=== PATIENT | female | born 1930 | race Caucasian/White ===

== ENCOUNTER → 2017-03-24 | Outpatient (CLI) | payer MEDICARE, OTHER ==
[2015-11-25 23:57] VITALS: BP 142/65
[~2017-03-24] MED LIST: ANAS1TAB3 PO; ASPI-482 PO; CELE200C PO; CONTRAST GIVEN MC PRN; CYAN10005 PO; DOCU-27 PO; HYDR-971 PO; IOHEXOL 240 MG/ML 50ML VIAL. PO ONE; LISI2.5T PO; METF-620 PO; METO25TA4 PO; MULT-208 PO; Oxycodone Hcl/Acetaminophen PO; SIMV20TA3 PO; TRAS440V IV
--- NOTE | 2017-03-24 13:33 | RAD ---
Examination: CT chest abdomen pelvis without IV contrast History: History of staging colon cancer Comparison: PET CT scan from 06/13/2016 Technique: Axial CT images of the chest abdomen pelvis performed without IV contrast. Coronal and sagittal reformats were performed. PQRS Compliance Statement: One or more of the following individualized dose reduction techniques were utilized for this examination: 1. Automated exposure control 2. Adjustment of the mA and/or kV according to patient size 3. Use of iterative reconstruction technique Findings: The visualized thyroid gland grossly appears unremarkable. The central airways are patent. The heart size grossly appears unremarkable. Small hiatal hernia. No radiologically significant mediastinal or axillary lymphadenopathy identified. Right apical chronic scarring or consolidation changes identified likely probably prior radiation changes grossly similar to prior exam. Minimal bibasal interstitial lung markings are similar to prior exam. Minimal soft tissue changes identified in the right axillary region probably prior surgical changes, similar to prior exam. The visualized noncontrasted liver, spleen, adrenals grossly appears unremarkable. The gallbladder is mildly distended The small bowel is nondilated. Feces and gas noted in the colon. The appendix is normal. No evidence of hydronephrosis. No radiologically significant retroperitoneal lymphadenopathy identified. Moderate degenerative changes in the visualized thoracal lumbar spine. Small fat-containing umbilical hernia. Right femoral prosthesis identified. Impression: 1. No evidence of metastatic disease identified on this noncontrasted exam. 2. Right apical lung scarring changes probably radiation changes. 3. Small hiatal hernia.
== END | disposition home or self-care (01) ==
LOC: CT 10:15
PROVIDERS: ATTEND Internal Medicine Hematology & Oncology
DX: C18.7 Malignant neoplasm of sigmoid colon (principal); K44.9 Diaphragmatic hernia without obstruction or gangrene
CPT/HCPCS: 71250; 74176

== ENCOUNTER → 2017-12-09 | Outpatient (CLI) | payer MEDICARE, OTHER | END | disposition home or self-care (01) | LOC: ECHO 10:35 | DX: I08.3 Combined rheumatic disorders of mitral, aortic and tricuspid valves (principal); I21.4 Non-ST elevation (NSTEMI) myocardial infarction | CPT/HCPCS: 93306 ==

== ENCOUNTER → 2018-03-30 | Outpatient (CLI) | payer MEDICARE, OTHER | END | disposition home or self-care (01) | LOC: KCIC DEXA 11:29 | DX: C18.7 Malignant neoplasm of sigmoid colon (principal); M85.88 Other specified disorders of bone density and structure, other site; Z78.0 Asymptomatic menopausal state | CPT/HCPCS: 77080 ==

== ENCOUNTER → 2018-07-09 | Outpatient (CLI) | payer MEDICARE, OTHER ==
[2015-11-25 23:57] VITALS: BP 142/65
[~2018-07-09] MED LIST changes: +CHOL10003 PO; -CONTRAST GIVEN MC PRN; +DOCU-109 PO; -DOCU-27 PO; -IOHEXOL 240 MG/ML 50ML VIAL. PO ONE; -METF-620 PO; +METF10003; +METF10003 PO
--- NOTE | 2018-07-09 14:00 | RAD ---
FDG tumor localization scan, PET/CT, 07/09/2018: History: Restaging breast cancer Following IV injection of 14.4 mCi of 18 F-FDG, imaging was performed from the skull base to the proximal thighs. The noncontrast CT component was performed for attenuation correction and anatomic localization purposes rather than for primary diagnosis. The patient's blood glucose level at the time of injection was 131 MG/DL. Comparison is made to a study from 06/13/2016. Physiologic activity is evident in the neck. There is moderate unchanged infiltrate in the right apical region laterally. This demonstrates increased FDG uptake with a maximum SUV of 2.6. Similar FDG uptake was present on the previous study. There is a small 10 x 15 mm density involving the soft tissues of the right chest wall at the mastectomy site which appears to be unchanged. It demonstrates low level FDG uptake with a maximum SUV of 2.5, similar to that seen on the previous study. There is also mildly increased activity involving the right posterolateral chest wall in the subscapular region. The maximum SUV at this level is 2.7, unchanged since the previous study. No abnormal pulmonary FDG uptake is seen. The mediastinal uptake is unremarkable. Normal GI tract and urinary tract activity is present in the abdomen and pelvis. No hypermetabolic abdominal or pelvic lesion is seen. No hypermetabolic bony lesion is seen. IMPRESSION: 1. Unchanged mildly hypermetabolic right apical pulmonary infiltrate and right lateral chest wall foci which are probably post therapeutic. 2. No new FDG PET abnormality is detected.
== END | disposition home or self-care (01) ==
LOC: PETSC 11:05
PROVIDERS: ATTEND Internal Medicine Hematology & Oncology
DX: C18.7 Malignant neoplasm of sigmoid colon (principal); I13.10 Hypertensive heart and chronic kidney disease without heart failure, with stage 1 through stage 4 chronic kidney disease, or unspecified chronic kidney disease; E11.22 Type 2 diabetes mellitus with diabetic chronic kidney disease; N18.3 Chronic kidney disease, stage 3 (moderate); E78.5 Hyperlipidemia, unspecified; E78.00 Pure hypercholesterolemia, unspecified; R91.8 Other nonspecific abnormal finding of lung field; Z86.718 Personal history of other venous thrombosis and embolism; Z85.038 Personal history of other malignant neoplasm of large intestine; Z85.3 Personal history of malignant neoplasm of breast; Z92.3 Personal history of irradiation; Z90.13 Acquired absence of bilateral breasts and nipples; Z90.710 Acquired absence of both cervix and uterus; Z82.49 Family history of ischemic heart disease and other diseases of the circulatory system; Z80.3 Family history of malignant neoplasm of breast
CPT/HCPCS: 78815; A9552

== ENCOUNTER → 2018-10-29 | Outpatient (CLI) | payer MEDICARE, OTHER ==
[2015-11-25 23:57] VITALS: BP 142/65
[~2018-10-29] MED LIST changes: -ANAS1TAB3 PO; +ANAS1TAB47 PO; +HYDR-3164 PO; -HYDR-971 PO; -METF10003; -METF10003 PO; +METF10007; +METF10007 PO
--- NOTE | 2018-10-29 14:58 | RAD ---
CLINICAL HISTORY: Colon cancer and breast cancer INDICATION: Restaging. COMPARISON: PET CT 07/09/2018 TECHNIQUE: Location of scan: [facility] Radiopharmaceutical Dose: 12.67 mCi F-18 FDG intravenous Blood glucose at time of study: 110 FDG uptake time = 60 minutes. Images were obtained from the mid head to the mid thighs. A low dose, noncontrast CT study was performed for the purpose of attenuation correction and anatomic localization. FINDINGS: Head and Neck: Physiologic activity is seen within the head and neck. Chest: Right apical infiltrate is again seen. This has an SUV max of approximately 3.2, previously 2.6. There is minimal activity along the right chest wall in the region of mastectomy, with associated baseline metabolic activity at 2.3, previously 2.5. Minimal right subscapular/infrascapular increased metabolic activity is also stable. Abdomen and Pelvis: Physiologic activity is seen within the bowel, renal collecting system and liver. Skeletal/soft tissues: Minimal activity in the right paraspinal region in the thoracic spine is seen correlating with the associated musculature, possibly physiologic Reference SUV Values: Mediastinal SUV Max: 4.1 Liver SUV Max: 4.4 IMPRESSION: 1. Stable right apical pulmonary infiltrate, possibly posttherapeutic changes with stable degree of metabolic uptake. 2. Additional soft tissue foci of increased uptake are also grossly stable. 3. No evidence for new area of increased metabolic activity. Radiation Dosimetry: The radiopharmaceutical used for this exam delivers approximately 0.7 mSv/mCi (70 mRem/mCi) Source: ICRP Publication 106
== END | disposition home or self-care (01) ==
LOC: PETSC 09:11
PROVIDERS: ATTEND Internal Medicine Hematology & Oncology
DX: R91.8 Other nonspecific abnormal finding of lung field (principal); Z85.038 Personal history of other malignant neoplasm of large intestine; Z85.3 Personal history of malignant neoplasm of breast
CPT/HCPCS: 78815; A9552

== ENCOUNTER → 2018-11-06 | Day surgery (SDC) | payer MEDICARE, OTHER ==
[~2018-11-06] MED LIST changes: +HYDROmorphone 2 MG/ML VIAL IV PRN; +IV NORMAL SALINE 1000ML BAG 1,000 ML IV SCH; +IV RINGERS,LACTATED 1000ML 1,000 ML IV SCH; +LIDOCAINE 1% PF 2 ML VIAL. ID PRN; +LIDOCAINE 1% PF 2 ML VIAL. ONE; +MORPHINE SULFATE 2 MG/ML VIAL. IV PRN; +ONDANSETRON PF 4 MG/2 ML VIAL. IV PRN; +PROCHLORPERAZINE 10 MG/2 ML VIAL. IV PRN; +PROPOFOL 20 ML IV ONE; +fentaNYL PF VIAL 100 MCG/2 ML VIAL IV PRN
--- NOTE | 2018-11-06 10:46 | PDOC2 ---
CONSULT Date of Consult Date of Consult DATE: 11/06/18 TIME: 10:41 Reason for Consult Reason for Consult: Rising CEA and hx of colon cancer History of Present Illness Reason for Visit: 88 yo femal with prior history of colon cancer s/p resection in 2015 is seen with rising CEA levels. Interval CT scan and PET scans have been unrevealing for pathology. Interval colonoscopy requested to further assess. Past Medical History Cardiovascular: Hyperlipidemia, Other Pulmonary: No pertinent hx CENTRAL NERVOUS SYSTEM: Other GI: Other (colon cancer) Heme/Onc: Anemia NOS, Cancer Hepatobiliary: No pertinent hx Psych: No pertinent hx Musculoskeletal: Osteoarthritis Rheumatologic: No pertinent hx Infectious disease: No pertinent hx Renal/: Chronic renal insuff Endocrine: Diabetes Past Surgical History Past Surgical History: Mastectomy, Colon Resection, Other Family History Family History: Cancer (breast) Social History No ALCOHOL: none Drugs: None Current Medications Current Medications Current Medications Ondansetron HCl (Zofran) 4 mg PRN Q6HRS PRN IV NAUSEA/VOMITING; Start at 07:00; Stop 11/07/18 at 06:59 Fentanyl Citrate (Fentanyl 2ml Vial) 25 mcg PRN Q5MIN PRN IV MILD PAIN; Start 11/06/18 at 07:00; Stop 11/07/18 at 06:59 Fentanyl Citrate (Fentanyl 2ml Vial) 50 mcg PRN Q5MIN PRN IV MODERATE TO SEVERE PAIN; Start 11/06/18 at 07:00; Stop 11/07/18 at 06:59 Morphine Sulfate (Morphine Sulfate) 1 mg PRN Q10MIN PRN IV SEVERE PAIN; Start 11/06/18 at 07:00; Stop 11/07/18 at 06:59 Ringer's Solution 1,000 ml @ 30 mls/hr Q24H IV ; Start 11/06/18 at 07:00; Stop 11/06/18 at 18:59 Lidocaine HCl (Xylocaine-Mpf 1% 2ml Vial) 2 ml PRN 1X PRN ID IV START; Start 11/06/18 at 07:00; Stop 11/07/18 at 06:59 Hydromorphone HCl (Dilaudid) 0.5 mg PRN Q10MIN PRN IV SEV PAIN, Second choice; Start 11/06/18 at 07:00; Stop 11/07/18 at 06:59 Prochlorperazine Edisylate (Compazine) 5 mg PACU PRN PRN IV NAUSEA, MRX1; Start 11/06/18 at 07:00; Stop 11/07/18 at 06:59 Sodium Chloride 1,000 ml @ 125 mls/hr Q8H IV Last administered on 11/06/18at 10:25; Start 11/06/18 at 11:00; Stop 11/06/18 at 11:01 Propofol 40 ml @ As Directed STK-MED ONCE IV ; Start 11/06/18 at 10:35; Stop 11/06/18 at 10:36; Status DC Lidocaine HCl (Xylocaine-Mpf 1% 2ml Vial) 2 ml STK-MED ONCE .ROUTE ; Start at 10:35; Stop 11/06/18 at 10:36; Status DC Active Scripts Active Reported Metformin Hcl 1,000 Mg Tablet 1,000 Mg 2TABS PO BID Vitamin D3 (Cholecalciferol (Vitamin D3)) 1,000 Unit Tablet 1,000 Unit PO DAILY Metoprolol Tartrate 25 Mg Tablet 25 Mg PO 1/2TAB PO BID Lisinopril 2.5 Mg Tablet 2.5 Mg PO DAILY Arimidex (Anastrozole) 1 Mg Tablet 1 Mg PO DAILY Simvastatin 20 Mg Tablet 20 Mg PO HS Aspir 81 (Aspirin) 81 Mg Tablet.dr 81 Mg PO DAILY Allergies Allergies: Coded Allergies: I S O L A T I O N *CONTACT* (Verified Allergy, Unknown, 12/01/15) VRE + No Known Medication Allergies (Verified Allergy, Unknown, 11/06/18) Physical Exam General: Alert, Oriented X3 Lungs: Clear to auscultation Heart: Regular rate, Normal S1 Abdomen: Normal bowel sounds, Soft, No tenderness Vitals VITALS Vital Signs Date Time Temp Pulse Resp B/P (MAP) Pulse Ox O2 Delivery O2 Flow Rate FiO2 11/06/18 10:20 97.8 70 18 97 97.8 Labs Labs Laboratory Tests Test 11/06/18 10:15 Glucose (Fingerstick) 116 mg/dL (70-99) Laboratory Tests Test 11/06/18 10:15 Glucose (Fingerstick) 116 mg/dL (70-99) Assessment/Plan Assessment/Plan Hx of colon cancer with rising CEA, interval colonoscopy recommended to assess s /p resection in 2014 MAURICIO ELIZABETH MD Nov 06, 2018 10:46
[2018-11-06 11:25] VITALS: BP 116/54
== END | disposition home or self-care (01) ==
LOC: ENDOS 09:27
PROVIDERS: ATTEND Internal Medicine Gastroenterology
DX: Z12.11 Encounter for screening for malignant neoplasm of colon (principal); K64.0 First degree hemorrhoids; E78.5 Hyperlipidemia, unspecified; M19.90 Unspecified osteoarthritis, unspecified site; E11.22 Type 2 diabetes mellitus with diabetic chronic kidney disease; N18.9 Chronic kidney disease, unspecified; Z85.038 Personal history of other malignant neoplasm of large intestine; Z98.890 Other specified postprocedural states; Z90.10 Acquired absence of unspecified breast and nipple; Z80.3 Family history of malignant neoplasm of breast; Z79.899 Other long term (current) drug therapy; Z79.84 Long term (current) use of oral hypoglycemic drugs; Z79.82 Long term (current) use of aspirin
CPT/HCPCS: 82962; G0105; J2704; 45378

== ENCOUNTER → 2019-02-02 | Outpatient (CLI) | payer MEDICARE, OTHER ==
[2018-11-06 11:25] VITALS: BP 116/54
[~2019-02-02] MED LIST changes: +GLIM4TAB2 PO; -HYDROmorphone 2 MG/ML VIAL IV PRN; +IOHEXOL 240 MG/ML 50ML VIAL. PO ONE; -IV NORMAL SALINE 1000ML BAG 1,000 ML IV SCH; -IV RINGERS,LACTATED 1000ML 1,000 ML IV SCH; -LIDOCAINE 1% PF 2 ML VIAL. ID PRN; -LIDOCAINE 1% PF 2 ML VIAL. ONE; -MORPHINE SULFATE 2 MG/ML VIAL. IV PRN; -ONDANSETRON PF 4 MG/2 ML VIAL. IV PRN; -PROCHLORPERAZINE 10 MG/2 ML VIAL. IV PRN; -PROPOFOL 20 ML IV ONE; -fentaNYL PF VIAL 100 MCG/2 ML VIAL IV PRN
--- NOTE | 2019-02-02 11:38 | RAD ---
CT CHEST ABDOMEN PELVIS WO Indication: ADENOCARCINOMA OF SIGMOID COLON
PO ONLY DUE TO GFR 26 OMNI 240 50 MLS
PREVIOUS Exposure: One or more of the following individualized dose reduction techniques were utilized for this examination: 1. Automated exposure control 2. Adjustment of the mA and/or kV according to patient size 3. Use of iterative reconstruction technique. Comparison: Prior PET/CT scan of November 06, 2018. Prior CT chest abdomen pelvis of March 24, 2017. Technique: No intravenous contrast given. Oral contrast was given. Findings: Evaluation of solid viscera, bowel and vasculature is compromised by the noncontrast technique. Chest: Mild aortic calcifications without evidence of aneurysm. Left thyroid is slightly small relative to the right, stable. No significant lymph node enlargement is identified. No pericardial effusion. Coronary artery calcifications are identified. No significant pleural effusion. Coarse opacity identified at the right upper lobe, at the apex. This appears similar as the 2017 exam, likely chronic scarring or post therapeutic change. Milder pleural and parenchymal scarring is seen at the left lung apex also similar. Interstitial opacities in both lung bases are again seen, compatible with scarring. The trachea and mainstem bronchi appear patent. There are 2 small pulmonary nodules in the right upper lobe which were not clearly seen on the prior exam. Coronal series 5, image 39, measuring 4 mm diameter each. Degenerative spondylosis of the spine. Vertebral body height and alignment appears similar as the prior CT exam. No destructive bone lesion is identified. IMPRESSION: 1. There are 2 small right upper lobe pulmonary nodules, 4 mm each, which were not seen previously. Recommend continued follow-up with CT chest or PET/CT. 2. Chronic appearing pleural and parenchymal changes in the upper lobes, much greater on the right, are stable. Abdomen pelvis: Liver and spleen appear unremarkable. No fluid or inflammatory changes around the pancreas. No evidence of adrenal mass. No evidence of urolithiasis or hydronephrosis. No calcified gallstone. Aorta and major branches are calcified without aneurysm. There is a small lymph node to the right of the inferior vena cava and spine measuring 8 mm short axis, not visualized on the prior study. Smaller subcentimeter aortocaval lymph nodes are also seen, slightly more prominent than prior study. Small hiatal hernia. No evidence of bowel obstruction. No evidence of acute colitis. Appendix appears normal. Right hip replacement results in artifact obscuring pelvic structures including urinary bladder, distal ureters and reproductive organs. Fat-containing anterior abdominal wall hernia, small. No evidence of pneumoperitoneum or ascites. Degenerative spondylosis of the spine. No evidence of destructive bone lesion. There is generalized bone demineralization. IMPRESSION: Retroperitoneal lymph nodes are slightly greater in size than the prior study, measuring up to 7 mm short axis. Given the interval change, recommend further evaluation with follow-up CT scan or PET/CT. Electronically signed by: Tarik Grant MD (02/02/2019 11:36 AM) [id number]
== END | disposition home or self-care (01) ==
LOC: CT 08:32
PROVIDERS: ATTEND Internal Medicine Hematology & Oncology
DX: C18.7 Malignant neoplasm of sigmoid colon (principal); C50.411 Malignant neoplasm of upper-outer quadrant of right female breast; K44.9 Diaphragmatic hernia without obstruction or gangrene; R91.8 Other nonspecific abnormal finding of lung field; M47.814 Spondylosis without myelopathy or radiculopathy, thoracic region; Z96.641 Presence of right artificial hip joint; Z17.0 Estrogen receptor positive status [ER+]
CPT/HCPCS: 71250; 74176; Q9966

== ENCOUNTER → 2019-05-03 | Outpatient (CLI) | payer MEDICARE, OTHER ==
[2018-11-06 11:25] VITALS: BP 116/54
[~2019-05-03] MED LIST changes: +CONTRAST GIVEN. MC PRN
--- NOTE | 2019-05-03 12:16 | RAD ---
EXAM: CT Chest, Abdomen and Pelvis without IV contrast CLINICAL HISTORY: Colon cancer COMPARISON: 02/02/2019, 03/24/17 TECHNIQUE: Helical CT of the chest, abdomen and pelvis was performed without intravenous contrast. Axial, coronal and sagittal reformatted images were generated. ---PQRS compliance statement - One or more of the following individualized dose reduction techniques were utilized for this study: 1. Automated exposure control 2. Adjustment of the mA and/or kV according to patient size 3. Use of iterative reconstruction technique--- FINDINGS: Lack of intravenous contrast limits evaluation of solid organs, vasculature, and lymph nodes. Chest: The heart is not enlarged. No pericardial effusion. Coronary artery calcifications are seen. No mediastinal or hilar lymphadenopathy. No axillary lymphadenopathy. No pleural effusion or pneumothorax. Emphysematous changes are seen bilaterally. Subpleural reticular interstitial opacities in the lower lobes dependently, possibly scarring however interstitial lung disease may have similar appearance. Right upper lobe subpleural airspace opacities with interstitial prominence and volume loss, possibly atelectasis/scarring, unchanged to at least 03/24/2017. There are 2 small pulmonary nodules in the right upper lobe, essentially stable (series 5 image 38), measuring approximately 4 mm. Abdomen and Pelvis: No focal liver lesion. Gallbladder is normal. No biliary ductal dilatation. Spleen is unremarkable. Adrenal glands and pancreas are unremarkable. No renal tract calculus. Left kidney is small. No focal renal lesion. No hydronephrosis. No small or large bowel dilatation. Moderate colonic stool content. The previously seen prominent retroperitoneal lymph nodes have marginally decreased in size, now measuring 3 to 4 mm in short axis, previously up to 7 mm. Small fat-containing ventral abdominal hernia. Atherosclerotic calcifications of aorta are seen. Bones: Diffusely decreased bone mineral density. Right hip arthroplasty is seen. Degenerative changes of the spine are seen. IMPRESSION: 1. Stable right upper lobe lung nodules 2. The previously seen prominent retroperitoneal lymph nodes are marginally decreased in size Electronically signed by: Gabriel Roberson MD (05/03/2019 12:12 PM) [facility]
== END | disposition home or self-care (01) ==
LOC: CT 09:29
PROVIDERS: ATTEND Internal Medicine Hematology & Oncology
DX: C18.7 Malignant neoplasm of sigmoid colon (principal); C50.411 Malignant neoplasm of upper-outer quadrant of right female breast; I25.10 Atherosclerotic heart disease of native coronary artery without angina pectoris; J43.9 Emphysema, unspecified; R91.8 Other nonspecific abnormal finding of lung field; K46.9 Unspecified abdominal hernia without obstruction or gangrene; I70.0 Atherosclerosis of aorta; Z17.0 Estrogen receptor positive status [ER+]
CPT/HCPCS: 71250; 74176; Q9966